=== PATIENT | female | born 1980 | race Caucasian/White ===

== ENCOUNTER → 2016-04-26 | Outpatient (CLI) | payer OTHER ==
[~2016-04-26] MED LIST: FOLIC ACID; GADOBUTROL 10mMol/10ml INJECTION IV ONE; NITR100C4 PO; PREN-108 PO; SALINE FLUSH 10ml SYRINGE ONE; THYROID PO
--- NOTE | 2016-04-26 10:06 | DI ---
Indication: ITS.REASON: H53.40 VISUAL FIELD DEFECT PROCEDURE: MRI BRAIN W/WO CONTRAST: Encounter: Initial Comparisons: None Technique: Multiplanar, multisequence, MR imaging of the head with and without contrast was acquired. Contrast: 10 mL of Gadavist FINDINGS: The ventricles are of normal size, shape, and contour for the patient's age. The brain stem, cerebellum, and cerebral hemispheres have a normal morphologic appearance as well as MR signal intensity on all pulse sequences. Following intravenous administration of contrast, no areas of abnormal enhancement are evident. There are no areas of restricted diffusion to suggest an acute infarct. There is no evidence of an intracranial mass lesion, intracranial hemorrhage, or hydrocephalus. The visualized portions of the orbits, calvarium, paranasal sinuses, and skull base demonstrate no significant abnormality. IMPRESSION: Normal exam .
== END ==
LOC: IMA 08:28
PROVIDERS: ATTEND Family Medicine
DX: H53.40 Unspecified visual field defects (principal)
CPT/HCPCS: 70553; A9585